=== PATIENT | female | born 1945 | race Caucasian/White ===

== ENCOUNTER 2017-05-14 09:06 | Outpatient (CLI) | payer SELFPAY ==
--- NOTE | 2017-05-14 20:34 | Ultrasound Report ---
EXAM: ABDOMEN ULTRASOUND EXAM DATE: 05/14/2017 10:19 AM. CLINICAL HISTORY: HIGH Ferritin; generalized ABDOMINAL PAIN. COMPARISON: 05/06/2015. TECHNIQUE: Real-time scanning was performed with static images obtained. FINDINGS: Liver: Diffusely echogenic, suggestive of hepatic steatosis. 13.7 cm. Main portal vein flow: Hepatope jay. Gallbladder: Surgically absent. Biliary System: Common bile duct measures 6.5 mm. No intrahepatic or extrahepatic ductal dilatation. Pancreas: Not seen due to overlying bowel gas. Kidneys: Right: 9.9 cm longitudinally. Normal. No contour-deforming mass, stones, or hydronephrosis. Left: 11.6 cm longitudinally. Normal. No contour-deforming mass, stones, or hydronephrosis. Spleen: 11.2 x 4.9 x 4.9 cm. Normal in size and echotexture. Aorta and Inferior Vena Cava: Unremarkable. The aorta measures 2 cm in diameter proximally, 1.6 cm in diameter at its midportion, and 1.5 cm in diameter distally. IMPRESSION: Diffusely echogenic liver, suggestive of hepatic steatosis. Otherwise unremarkable abdomi nal ultrasound. [facility] Referring Provider Line: [phone] SITE ID: [id number]
== END 2017-05-14 09:07 | disposition home or self-care (01) ==
LOC: DI 09:06
PROVIDERS: ATTEND Naturopath
DX: K76.89 Other specified diseases of liver (principal)
CPT/HCPCS: 76700